=== PATIENT | male | born 1980 | race Caucasian/White ===

== ENCOUNTER → 2021-09-30 08:12 | Outpatient (CLI) | payer BC, SELFPAY ==
--- NOTE | 2021-09-30 | US_ITS ---
FINAL REPORT TECHNIQUE: Ultrasound images of the kidneys and bladder were obtained. CLINICAL HISTORY: history of KIDNEY STONES; left flank pain FINDINGS: There is diffuse fatty infiltration of the liver. There is a 3 cm hypoechoic mass in the anterior right lobe of the liver which does not appear to represent a hemangioma. The right kidney measures 12.4 cm in length. It is normal in echogenicity. There is no hydronephrosis. The left kidney measures 12.7 cm in length. It is normal in echogenicity. There is no hydronephrosis. There is a benign-appearing left renal cyst measuring 1.5 cm . IMPRESSION: Mass in the right lobe of the liver as above. Recommend fused abdomen and pelvic CT to better evaluate. Left renal cyst Reviewed, Interpreted and Dictated by Ramos Shah MD Transcribed by Lucina Winter Authenticated by Ramos Shah MD on 09/30/2021 11:17:13 AM [facility]
== END ==
PROVIDERS: PCP Nurse Practitioner Family; Visit Provider Nurse Practitioner
DX: N20.0 Calculus of kidney (principal)
CPT/HCPCS: 76770

== ENCOUNTER → 2021-10-10 08:49 | Outpatient (CLI) | payer BC, SELFPAY ==
--- NOTE | 2021-10-10 08:53 | CT_ITS ---
FINAL REPORT TECHNIQUE: Pre, post and delayed contrast axial CT images of the abdomen and pelvis were obtained. Coronal reformatted images were also obtained and reviewed. This study was performed with techniques to keep radiation doses as low as reasonably achievable (ALARA). Individualized dose reduction techniques using automated exposure control or adjustment of mA and/or kV according to the patient's size were employed. CLINICAL HISTORY: KIDNEY STONES/LIVER MASS COMPARISON: Ultrasound performed on September 30, 2021. FINDINGS: CT OF THE ABDOMEN AND PELVIS WITH AND WITHOUT CONTRAST Abdomen: The lung bases are clear. The heart is normal in size. There is a 3.0 x 2.4 cm subtle low-attenuation lesion in the posterior right lobe of the liver seen on image 44 of series 3. There is diffuse fatty infiltration of the liver. On the post infusion images, there is heterogeneous enhancement of this lesion which is well seen on images 37-43 of series 5. On the delayed phase images, this lesion is much less conspicuous and demonstrates an attenuation value similar to the hepatic parenchyma. The spleen is unremarkable. No adrenal mass is present. The pancreas has an unremarkable appearance. On the pre-contrast images, there are multiple small bilateral nonobstructing renal stones measuring up to 7 mm in the lower pole of the right kidney. The aorta is normal in caliber. There is no free fluid or adenopathy. Pelvis: The appendix unremarkable. The urinary bladder is unremarkable. No inflammatory process is seen. There is no evidence of adenopathy. There is extensive descending and sigmoid diverticulosis. There is no evidence of bowel obstruction. IMPRESSION: Multiple small bilateral nonobstructing renal stones. 3 cm heterogeneously enhancing lesion with rapid washout in the right lobe of the liver. This finding does not have the typical appearance of a hemangioma, particularly given the ultrasound appearance. Differential considerations favor adenoma or atypical focal nodular hyperplasia. There are no features of cirrhosis present. Recommend 3 to 6-month follow-up to ensure stability. Reviewed, Interpreted and Dictated by Ramso Shah MD Transcribed by Jacquelin Adams Authenticated by Ramos Shah MD on 10/10/2021 12:16:12 PM [facility]
== END ==
LOC: RAD 08:50
PROVIDERS: PCP Nurse Practitioner Family; Visit Provider Urology
DX: N20.0 Calculus of kidney (principal); R16.0 Hepatomegaly, not elsewhere classified
CPT/HCPCS: 74178; Q9967

== ENCOUNTER → 2022-09-29 15:09 | Outpatient (CLI) | payer BC, SELFPAY ==
--- NOTE | 2022-09-29 15:14 | US_ITS ---
FINAL REPORT TECHNIQUE: Sonographic images were obtained of the retroperitoneum. CLINICAL HISTORY: LT FLANK PAIN,ABD PAIN FINDINGS: The right kidney measures 12.0 cm. The left kidney measures 11.7 cm. There is a probable small stone in the upper pole the right kidney. There is a 1.4 cm cyst in the right kidney. The spleen measures within normal limits. There is a stable 2.9 cm mass in the right hepatic lobe. The liver is fatty infiltrated. IMPRESSION: Probable small right renal stone. Right renal cyst. Stable right hepatic lobe mass. Reviewed, Interpreted and Dictated by Sathish Reinoso III, MD Transcribed by Quentin Webb Authenticated and [facility]
== END ==
PROVIDERS: PCP Nurse Practitioner Family; Visit Provider Nurse Practitioner Family
DX: R10.9 Unspecified abdominal pain (principal)
CPT/HCPCS: 76770

== ENCOUNTER 2023-10-26 17:04 | Emergency (ER) | payer BC, SELFPAY ==
[2023-10-26 17:05] VITALS: BP 146/96; PULSE 97; RESP 20; TEMP 37.1; O2SAT 97; BMI 31.0
--- NOTE | 2023-10-26 17:25 | CT_ITS ---
PROCEDURE INFORMATION: Exam: CT Abdomen And Pelvis With Contrast Exam date and time: 10/26/2023 6:04 PM Age: 42 years old Clinical indication: Abdominal pain; Epigastric; Additional info: No bm or flatus/epigastric pain ozempic TECHNIQUE: Imaging protocol: Computed tomography of the abdomen and pelvis with contrast. Radiation optimization: All CT scans at this facility use at least one of these dose optimization techniques: automated exposure control; mA and/or kV adjustment per patient size (includes targeted exams where dose is matched to clinical indication); or iterative reconstruction. Contrast material: ISOVUE; Contrast volume: 75 ml; Contrast route: IV; COMPARISON: CT ABDOMEN PELVIS WO/W CON 10/10/2021 9:41 AM FINDINGS: Lungs: The visualized lung bases demonstrate no focal infiltrates or pleural effusions. Liver: Mild diffuse hepatic steatosis is identified. Gallbladder and bile ducts: The gallbladder is normal. There is no evidence of biliary ductal dilation. Pancreas: The pancreas is normal. Spleen: The spleen is normal. Adrenal glands: The adrenal glands appear within normal limits. Kidneys and ureters: There are a few nonobstructing right-sided kidney stones the largest measuring 8 mm. Stomach and bowel: The stomach appears within normal limits. No wall thickening or inflammatory change. There are changes of diverticulosis without evidence for diverticulitis noted within the sigmoid colon.. Minimal to mild dilation and fluid-filled loops of small bowel favoring adynamic ileus. Appendix: No evidence of appendicitis. Intraperitoneal space: Unremarkable. No free air. No significant fluid collection. Vasculature: Unremarkable. No abdominal aortic aneurysm. Lymph nodes: Unremarkable. No pathologically enlarged lymph nodes are identified. Urinary bladder: The bladder appears within normal limits. No wall thickening. Reproductive: The prostate gland appears normal. Bones/joints: The regional skeletal structures appear within normal limits for age. Soft tissues: Unremarkable. IMPRESSION: 1. Minimal to mild dilation and fluid-filled loops of small bowel favoring adynamic ileus. 2. There are a few nonobstructing right-sided kidney stones the largest measuring 8 mm. 3. Diverticulosis without CT evidence to suggest diverticulitis. 4. No acute inflammatory process identified within the abdomen or pelvis.
--- NOTE | 2023-10-26 17:27 | ED_ITS ---
Discharge Plan Disposition Patient Disposition: Home, Self-Care Chief Complaint: PAIN Prescriptions Prescriptions: No Action amlodipine 10 mg tablet 10 mg PO DAILY Patient Comments: TAKE 1 TABLET BY MOUTH ONCE DAILY metformin 500 mg tablet 500 mg PO DAILY Patient Comments: TAKE 1 TABLET BY MOUTH ONCE DAILY lisinopril 5 mg tablet 5 mg PO DAILY Patient Comments: TAKE 1 TABLET BY MOUTH ONCE DAILY cetirizine [Zyrtec] 10 mg tablet 10 mg PO DAILY PRN aspirin 81 mg tablet,delayed release (DR/EC) 81 mg PO DAILY atorvastatin 40 mg tablet 40 mg PO DAILY (DME) lancets [Acti-Molina Lancets] 28 gauge misc See Rx Instructions .ROUTE Rx Instructions: As directed epinephrine 0.15 mg/0.15 mL auto-injector IM Referrals Follow up/Referrals: Francie Gilliam [Primary Care Provider] - See instructions Activity Restrictions/Add. Instructions Additional Instructions/Restrictions: At this time it was felt you are safe to be discharged home. If new or worsening symptoms please do not hesitate to return the emergency department. If symptoms persist please follow-up with your family doctor as you are able. Clinical Impressions Clinical Impression: Adynamic ileus, Adverse effects of medication, Vomiting Discharge ED Provider: Jung Irvin General Adult HPI General Chief complaint: PAIN Stated complaint: sever abd pain vomiting Time Seen by Provider: 10/26/23 17:11 History of Present Illness HPI narrative: Patient is a 42-year-old male with past medical history of xop-[id number] diabetes on Ozempic who presents emergency department for evaluation of epigastric pain and vomiting. Patient recently had his Ozempic change from 0.25-0.5 on Sunday, over the last 24 hours he has had belching, nonbloody vomiting, limited ability to tolerate p.o., no bowel movement since yesterday. No dysuria. No other acute complaints at this time. Related Data Home Medications Medication Instructions Recorded Confirmed amlodipine 10 mg tablet 10 mg PO DAILY 10/04/21 10/04/21 aspirin 81 mg tablet,delayed 81 mg PO DAILY 10/04/21 10/04/21 release atorvastatin 40 mg tablet 40 mg PO DAILY 10/04/21 10/04/21 cetirizine 10 mg tablet (Zyrtec) 10 mg PO DAILY PRN 10/04/21 10/04/21 epinephrine 0.15 mg/0.15 mL IM 10/04/21 10/04/21 auto-injector (for 33 to 66 lb patients) lancets 28 gauge (Acti-Molina 10/04/21 10/04/21 Lancets) lisinopril 5 mg tablet 5 mg PO DAILY 10/04/21 10/04/21 metformin 500 mg tablet 500 mg PO DAILY 10/04/21 10/04/21 Allergies Allergy/AdvReac Type Severity Reaction Status Date / Time bee venom protein (honey bee) Allergy Mild Verified 10/04/21 14:53 [facility] Disclaimer: The information contained in this section may have been updated after the patient was seen, as this information can be updated by other users. Social History Smoking Status: Current every day smoker tobacco type: smokeless tobacco alcohol intake: never substance use type: denies use current occupational status: employed Travel in the last 8 weeks: None household members: spouse and family housing: house ROS Obtained: Yes Systems reviewed as appropriate & no additional complaints except as documented Physical Exam General General appearance: alert and in no apparent distress Head Head exam: atraumatic and normocephalic Eye Eye exam: Present PERRL ENT ENT exam: Present mucous membranes moist Neck Neck exam: Present normal inspection Chest Chest inspection: Present normal inspection and symmetric chest wall rise Respiratory Respiratory exam: Present normal lung sounds bilaterally; Absent respiratory distress Cardiovascular Cardiovascular exam: Present regular rate and normal rhythm Abdominal Exam Abdominal exam: Present soft and tenderness (Mild, epigastric and left upper quadrant); Absent rebound Extremities Exam Extremities exam: Present normal inspection Neurological Exam Neurological exam: Present alert Psychiatric Psychiatric exam: Present normal affect Skin Skin exam: Present warm and dry Medical Decision Making Emiliano Inquiry Pt receiving controlled substance: No Vital Signs: 10/26/23 17:05 10/26/23 20:00 10/26/23 20:54 Temperature 98.8 F Temperature Source Oral Pulse Rate 94 H 86 Pulse Rate [Right Radial] 97 H Respiratory Rate 20 Blood Pressure 128/89 125/89 Blood Pressure [Right Arm] 146/96 H Blood Pressure Mean [Right Arm] 112 Blood Pressure Source [Right Arm] Automatic Cuff Blood Pressure Position [Right Arm] Sitting 02 Sat by Pulse Oximetry 97 98 97 Oxygen Delivery Method Room Air Lab Data Lab Results 10/26/23 17:20: WBC 14.3 H, RBC 5.33, Hgb 16.0, Hct 47.8, MCV 89.7, MCH 30.0, MCHC 33.4, RDW 14.0, Plt Count 358, MPV 8.6, Neut % (Auto) 68.8, Lymph % (Auto) 22.4, [place] % (Auto) 7.2, Eos % (Auto) 0.8, Baso % (Auto) 0.8, Neut # (Auto) 9.8 H, Lymph # (Auto) 3.2, [place] # (Auto) 1.0, Eos # (Auto) 0.1, Baso # (Auto) 0.1, Sodium 137, Potassium 3.0 L, Chloride 101, Carbon Dioxide 26, Anion Gap 13.0, BUN 13, Creatinine 0.90, Estimated GFR 92, Est GFR ( Amer) 111, Glucose 162 H, Calcium 9.9, Total Bilirubin 2.9 H, Direct Bilirubin 0.3, AST 31, ALT 59, Alkaline Phosphatase 84, Troponin I < 0.01, Total Protein 7.6, Albumin 4.4, Globulin 3.2, Albumin/Globulin Ratio 1.4, Lipase 32 10/26/23 20:50: Troponin I < 0.01 10/26/23 17:20 10/26/23 17:20 Orders (Tests/Meds): ED MEDICATIONS Generic Name Dose Route Start Last Admin Trade Name Freq PRN Reason Stop Dose Admin Potassium Chloride/Water 100 mls @ 50 mls/hr 10/26/23 18:24 10/26/23 20:58 Potassium Chloride 20meq/100ml Ivpb IV 10/26/23 22:23 50 mls/hr Q2H DILSHAD Administration Discontinued Medications Generic Name Dose Route Start Last Admin Trade Name Freq PRN Reason Stop Dose Admin Acetaminophen 1,000 mg 10/26/23 17:25 10/26/23 17:40 Acetaminophen 1,000mg/100ml Vial IV 10/26/23 17:26 1,000 mg ONCE ONE Administration Lactated Ringer's 1,000 mls @ 999 mls/hr 10/26/23 17:25 10/26/23 17:40 Lactated Ringer's 1000 Ml Bag IV 10/26/23 18:25 999 mls/hr .Q1H1M ONE Administration Iopamidol 75 ml 10/26/23 18:06 10/26/23 18:07 Iopamidol-370 (76%);100ml Bottle IV 10/26/23 18:07 75 ml ONCE ONE Administration Ketorolac Tromethamine 30 mg 10/26/23 17:25 10/26/23 17:41 Ketorolac 30mg/Ml Vial IV 10/26/23 17:26 30 mg ONCE ONE Administration Ondansetron HCl 4 mg 10/26/23 17:25 10/26/23 17:40 Ondansetron 4mg/2ml Vial IV 10/26/23 17:26 4 mg ONCE ONE Administration Potassium Chloride 40 meq 10/26/23 19:55 10/26/23 19:58 Potassium Chloride 20meq Tab PO 10/26/23 19:56 40 meq ONCE ONE Administration Sodium Chloride 10 ml 10/26/23 18:06 10/26/23 18:06 Sodium Chloride 0.9% 10ml Syr (Rad Only) IV 10/26/23 18:07 10 ml ONCE ONE Administration ORDERS Category Date Time Status CT abdomen pelvis w con Stat Cat Scan 10/26/23 17:25 Completed Bilirubin,Direct Stat Lab 10/26/23 17:20 Completed CBC w/Auto Diff [Complete Blood Count Auto Diff] Stat Lab 10/26/23 17:20 Completed CMP [Comprehensive Metabolic Panel] Stat Lab 10/26/23 17:20 Completed Lipase Stat Lab 10/26/23 17:20 Completed Trop I [Troponin I] Stat Lab 10/26/23 17:20 Completed Troponin I Q3H Lab 10/26/23 20:50 Completed Troponin I Q3H Lab 10/26/23 23:30 Ordered ECG Data Tracing #1: Independently interpreted by me, rate is 82, rhythm is regular, axis is normal, no ST elevation in anatomical contiguous leads, nonspecific T wave changes inferior leads. QTc 419. Medical Decision Narrative: In summary patient is a 42-year-old male with past medical history described above who presents emergency department for evaluation of abdominal pain and vomiting in setting of recent Ozempic up titration. Patient is hemodynamically stable and nontoxic-appearing upon arrival, afebrile. Differential diagnosis includes medication adverse side effect, bowel obstruction, pancreatitis, among others. Workup will be conducted with hematologic labs, EKG, troponin, CT abdomen pelvis IV contrast. Initial interventions include crystalloid bolus, Zofran. Initial workup reviewed by me, hematologic labs have nonspecific leukocytosis, hypokalemia which will be repleted IV, elevated bilirubin without direct hyperbilirubinemia or elevated lipase, initial troponin undetectably low. CT imaging shows minimal to mild dilatation of the small bowel favoring adynamic ileus, nonobstructing renal stones, diverticulosis without diverticulitis, no acute inflammatory process in the abdomen or pelvis. Given this I suspect medication adverse reaction. Upon repeat evaluation patient continued to be well-appearing, tolerating p.o. at bedside. Given this patient is appropriate for discharge at this time was instructed to decrease his Ozempic dose and will be discharged with a course of Zofran and was given return precautions. Critical Care Critical Care Time Critical Care Time: No
[2023-10-26] MEDS: ONDANSETRON 4MG/2ML VIAL 4 MG IV (17:40)
[2023-10-26] MEDS: LACTATED RINGERS 1000ML 1,000 ML 999 ML IV (17:40)
[2023-10-26] MEDS: ACETAMINOPHEN 1,000MG/100ML VIAL 1000 MG IV (17:40)
[2023-10-26] MEDS: KETOROLAC 30MG/ML VIAL 30 MG IV (17:41)
[2023-10-26 17:44] LABS: Basophils # 0.1 K/mm3 (0-0.2); Basophils % 0.8 % (0.1-2.0); Eosinophils # 0.1 K/mm3 (0.0-0.4); Eosinophils % 0.8 % (0.1-12.0); Hematocrit 47.8 % (42.0-52.0); Lymphocytes # 3.2 K/mm3 (0.7-4.5); Lymphocytes % 22.4 % (10-50); Mean Corpuscular HGB Conc 33.4 g/dL (31.8-35.4); Mean Corpuscular Volume 89.7 fl (80-94); Mean Platelet Volume 8.6 fl (7.4-10.4); Monocytes % 7.2 % (1.7-9.3); Neutrophils # 9.8 K/mm3 (1.8-7.8); Neutrophils % 68.8 % (37.0-80.0); Platelet Count 358 K/mm3 (142-424); Red Blood Count 5.33 M/mm3 (4.60-6.20); White Blood Count 14.3 K/mm3 (4.8-10.8)
[2023-10-26 17:47] LABS: Alanine Aminotransferase 59 U/L (12-78); Alkaline Phosphatase 84 U/L (38-126); Aspartate Amino Transferase 31 U/L (17-59); Bilirubin,Total 2.9 mg/dl (0.2-1.3); Blood Urea Nitrogen 13 mg/dl (9-20); Calcium 9.9 mg/dl (8.4-10.2); Carbon Dioxide 26 mmol/L (22.0-30.0); Estimated Glomerular Filt Rate 92 ml/min (>60); GFR (African American) 111 ML/MIN (>60); Glucose 162 mg/dl (74-100); Lipase 32 U/L (23-300)
[2023-10-26 17:48] LABS: Albumin Level 4.4 g/dl (3.5-5.0); Albumin/Globulin Ratio 1.4 (1.1-1.8); Globulin 3.2 g/dL (1.3-3.2); Total Protein,Serum 7.6 g/dl (6.3-8.2)
[2023-10-26 17:53] LABS: Chloride 101 mmol/L (98-107); Sodium 137 mmol/L (136-145)
[2023-10-26] MEDS: SODIUM CHLORIDE 0.9% 10ML SYR (RAD ONLY) 10 ML IV (18:06)
[2023-10-26] MEDS: IOPAMIDOL-370 (76%);100ML BOTTLE 75 ML IV (18:07)
[2023-10-26 18:10] LABS: Troponin I < 0.01 ng/ml (0.00-0.034)
--- NOTE | 2023-10-26 18:12 | ECG_ITS ---
APPROVED REPORT Exam: Resting ECG HR:82 bpm ECG Measurements Heart Rate 82 AXES NJ 151 P 32 QRSd 106 QRS 63 QT 381 T -11 QTc 419 Conclusion SINUS RHYTHM MODERATE T-WAVE ABNORMALITY, CONSIDER INFERIOR ISCHEMIA [-0.1+ mV T-WAVE IN II/aVF] ABNORMAL ECG Electronically signed by : CYNTHIA CORTES, 10/27/2023 00:25:17
[2023-10-26 18:34] LABS: Bilirubin,Direct 0.3 mg/dl (0.0-0.4)
[2023-10-26] MEDS: KCl 20mEq/100ml 100 ML 50 MEQ IV ×2 (19:27→20:58)
[2023-10-26] MEDS: POTASSIUM CHLORIDE 20MEQ TAB 40 MEQ PO (19:58)
[2023-10-26 20:00] VITALS: BP 128/89; PULSE 94; O2SAT 98
[2023-10-26 20:54] VITALS: BP 125/89; PULSE 86; O2SAT 97
[2023-10-26 21:28] LABS: Troponin I < 0.01 ng/ml (0.00-0.034)
[2023-10-26 22:48] VITALS: BP 125/89; PULSE 78; RESP 20; TEMP 36.6; O2SAT 98
== END 2023-10-26 22:56 | disposition home or self-care (01) ==
PROVIDERS: Emergency Provider Emergency Medicine; PCP Nurse Practitioner Family
DX: R10.13 Epigastric pain (principal); K56.0 Paralytic ileus; E87.6 Hypokalemia; E80.6 Other disorders of bilirubin metabolism; R11.2 Nausea with vomiting, unspecified; T50.905A Adverse effect of unspecified drugs, medicaments and biological substances, initial encounter; E11.9 Type 2 diabetes mellitus without complications; F17.290 Nicotine dependence, other tobacco product, uncomplicated; Z79.85 Long-term (current) use of injectable non-insulin antidiabetic drugs; Z79.84 Long term (current) use of oral hypoglycemic drugs
CPT/HCPCS: 36415; 74177; 80053; 82248; 83690; 84484; 85025; 93005; 96361; 96365; 96366; 96375; 99285; J0131; J2405; Q9967

== ENCOUNTER 2024-08-27 06:41 | Outpatient (CLI) | payer OTHER, SELFPAY ==
--- NOTE | 2024-08-27 06:46 | CT_ITS ---
FINAL REPORT TECHNIQUE: Axial images through the abdomen and pelvis were performed without contrast. This study was performed with techniques to keep radiation doses as low as reasonably achievable, (ALARA). Individualized dose reduction techniques using automated exposure control or adjustment of mA and/or kV according to the patient's size were employed. CLINICAL HISTORY: CALCULUS OF KIDNEY COMPARISON: 10/26/2023 FINDINGS: Abdomen: The lung bases are clear. The liver parenchyma is homogeneous. The gallbladder is present. The spleen, pancreas, and adrenals are unremarkable. There are multiple calcifications within the kidneys, largest measures 12 mm in the lower pole of the right kidney. There is no hydronephrosis or hydroureter. Pelvis: The urinary bladder is unremarkable. There is moderate descending and sigmoid diverticulosis. The appendix is normal. There is no pelvic mass or inflammation. IMPRESSION: Bilateral nephrolithiasis. Reviewed, Interpreted and Dictated by Ramos Shah MD Transcribed by Lucina Winter Authenticated and . [facility]
== END 2024-08-27 23:59 | disposition home or self-care (01) ==
LOC: RAD 06:43
PROVIDERS: PCP Nurse Practitioner; Visit Provider Nurse Practitioner
DX: N20.0 Calculus of kidney (principal)
CPT/HCPCS: 74176